=== PATIENT | female | born 1990 | race Caucasian/White ===

== ENCOUNTER 2017-09-23 00:11 | Inpatient (IN) | payer OTHER ==
[2017-09-23] VITALS (35 sets, daily range): BP systolic 106–142; BP diastolic 2–95; PULSE 66–125; TEMP 97.5–98.7
[~2017-09-23] VITALS: Ht 162.6 cm; Wt 77.7 kg
[~2017-09-23 00:11] MED LIST: LORTAB 5/500 501 TAB PO; MAGIC MOUTHWASH1 M2 PO; MAJIC MOUTH WASH
[2017-09-23] MEDS ORDERED: PRENATAL MVI (00:44)
[2017-09-23] MEDS ORDERED: ZANTAC 150150 MG (00:45)
[2017-09-23 02:13] LABS: BASO % 0.2 % (0.0-2.0); EOS # 0.1 (0.0-0.7); EOS % 0.7 % (0-4.0); GRAN % 75.8 % (42.2-75.2); LYMPH # 2.1 (1.2-3.4); LYMPH % 15.7 % (20.0-51.0); MEAN CELL VOLUME 92 fl (80.0-100.0); MEAN CORPUSCULAR HGB CONC 34 g/dl (33.0-37.0); MEAN PLATELET VOLUME 11.3 fl (7.4-10.4); MONO # 0.9 (0.1-0.6); MONO % 7.1 % (1.7-9.3); PLATELET COUNT 196 K/mm3 (130-400); RED BLOOD COUNT 3.75 M/mm3 (4.10-5.30); REDCELL DISTRIBUTION WIDTH-CV 13.6 % (11.5-14.5)
[2017-09-23 02:15] LABS: HEMATOCRIT 34.6 % (37.0-47.0); HEMOGLOBIN 11.7 g/dl (12.5-16.0); MEAN CORPUSCULAR HEMOGLOBIN 31 pg (27.0-31.0)
[2017-09-24 03:30] VITALS: BP 110/62; PULSE 86; TEMP 98
[2017-09-24 06:48] LABS: HEMATOCRIT 24.1 % (37.0-47.0); HEMOGLOBIN 8.2 g/dl (12.5-16.0)
[2017-09-24 07:13] VITALS: BP 116/71; PULSE 80; TEMP 97.8
[2017-09-24] MEDS ORDERED: MOTRIN 600600 MG/TAB PO (09:11)
[2017-09-24] MEDS ORDERED: PERCOCET 325 MG1 TA2 PO (09:11)
== END 2017-09-24 16:30 | disposition home or self-care (01) | DRG 767 ==
LOC: LDRO 00:11 → LDR 00:30 → OB 00:30
PROVIDERS: Obstetrics & Gynecology
PROC: 10E0XZZ Delivery of Products of Conception, External Approach (ICD-10-PCS; principal; 2017-09-23)
PROC: 10D17ZZ Extraction of Products of Conception, Retained, Via Natural or Artificial Opening (ICD-10-PCS; 2017-09-23)
PROC: 0KQM0ZZ Repair Perineum Muscle, Open Approach (ICD-10-PCS; 2017-09-23)
DX: O70.1 Second degree perineal laceration during delivery (principal); O99.02 Anemia complicating childbirth; D62 Acute posthemorrhagic anemia; O73.1 Retained portions of placenta and membranes, without hemorrhage; Z3A.39 39 weeks gestation of pregnancy; Z37.0 Single live birth
CPT/HCPCS: J0690; J2590; J7120

== ENCOUNTER 2018-12-05 00:27 | Inpatient (IN) | payer OTHER ==
[2018-12-05] VITALS (34 sets, daily range): BP systolic 110–158; BP diastolic 59–95; PULSE 70–112; TEMP 97.4–98.3
[~2018-12-05] VITALS: Ht 165.1 cm; Wt 77.7 kg
[~2018-12-05 00:27] MED LIST changes: +MOTRIN 600600 MG/TAB PO; +PERCOCET 325 MG1 TA2 PO; +PRENATAL MVI; +ZANTAC 150150 MG
--- NOTE | 2018-12-05 00:40 | NUR ---
at 40 weeks and 3 days arrives to unit with complaint of contractions since 2314. Pt denies LOF or vaginal bleeding and reports good movement. Pt oriented to room, call light within reach, bed in low and locked position. EFM and toco explained and applied. Plan of care reviewed. SVE with bulging bag of water Dr. Jackson on unit, notified. see physician notification.
--- NOTE | 2018-12-05 01:05 | NUR ---
18 g IV started in left forearm with 1 attempt. Admission labs obtained off of IV start. Lactated ringers infusing to gravity.
--- NOTE | 2018-12-05 01:10 | NUR ---
Dr. Jackson at bedside with bedside ultrasound. Vertex position confirmed. Reviewed plan of care with patient and family.
--- NOTE | 2018-12-05 01:15 | NUR ---
0115 - Pt requesting epidural, Sunshine Means CRNA notified. Will come to bedisde. 0123 - ASHANTI Cobos at bedside. Pt repositioned to sitting on edge of bed. Epidural procedure, risks, and benefits reviewed, pt verbalized understanding. 0132 - Single shot by ASHANTI Cobos, no adverse reactions. FHR tracing maternal HR verified by [id number] monitor. 0133 - Test dose by ASHANTI Cobos, no adverse reactions. 0141 - Pt repositioned to wedge left, safety precautions reviewed, pt verbalized understanding.
[2018-12-05 01:19] LABS: BASO % 0.3 % (0.0-2.0); EOS # 0.2 (0.0-0.7); EOS % 1.6 % (0-4.0); GRAN # 8.9 (1.4-6.5); GRAN % 71.8 % (42.2-75.2); HEMOGLOBIN 12.2 g/dl (12.5-16.0); LYMPH # 2.3 (1.2-3.4); LYMPH % 18.6 % (20.0-51.0); MEAN CELL VOLUME 89 fl (80.0-100.0); MEAN CORPUSCULAR HEMOGLOBIN 30 pg (27.0-31.0); MEAN CORPUSCULAR HGB CONC 34 g/dl (33.0-37.0); MEAN PLATELET VOLUME 11.4 fl (7.4-10.4); MONO # 0.9 (0.1-0.6); MONO % 7.3 % (1.7-9.3); PLATELET COUNT 201 K/mm3 (130-400); RED BLOOD COUNT 4.04 M/mm3 (4.10-5.30); REDCELL DISTRIBUTION WIDTH-CV 13.2 % (11.5-14.5)
[2018-12-05 01:21] LABS: HEMATOCRIT 35.9 % (37.0-47.0)
--- NOTE | 2018-12-05 06:18 | NUR ---
0618: Patient resting in bed, prepped for delivery. Bedside report from Jordan Metcalf RN. Dr. Jackson in room for delivery. 0619: Patient begins pushing with contractions. 0621: Spontaneous vaginal delivery of head immediately followed by infant body. Infant mouth and nose suctioned out by Dr. Jackson and to mothers abdomen where attended to by Sabra Arshad RN. Father of baby cuts umbilcial cord with assist from Dr. Jackson. 0625: Spontaneous and intact delivery of placenta. Pitocin started at 333ml/hr and fundus massaged, firm and down 1 from umbilicus. Second degree perineal laceration repaired. Patient tolerates well. Pericare provided and ice pack to perineum. Patient resting in bed holding infant. See labor and delivery summary, doctor dictation and anesthesia records.
--- NOTE | 2018-12-05 10:30 | NUR ---
IV to INT. Patient sitting up in bed, epidural catheter removed, blue tip intact and bandaid applied to site. Patient ambulates to bathroom. Able to void, pericare provided, ice pack to perineum and tucks pads used. Patient ambulates to room 215.
[2018-12-06 01:10] VITALS: BP 120/85; PULSE 75; TEMP 97.8
[2018-12-06 06:41] LABS: HEMATOCRIT 27.7 % (37.0-47.0); HEMOGLOBIN 9.2 g/dl (12.5-16.0)
[2018-12-06 07:10] VITALS: BP 135/87; PULSE 94; TEMP 98.7
[2018-12-06] MEDS ORDERED: IBU600 MG PO (08:21)
--- NOTE | 2018-12-06 10:26 | NUR ---
Initial visit; Parents thanked Stencil Cutter for offeirng congratulations and God's blessings for the of their son. Stencil Cutter thanked them for choosing our hospital.
[2018-12-06 20:00] VITALS: BP 135/79; PULSE 88; TEMP 97.3
[2018-12-07 07:55] VITALS: BP 121/85; PULSE 87; TEMP 97.9
== END 2018-12-07 11:35 | disposition home or self-care (01) | DRG 806 ==
LOC: LDRO 00:27 → LDR 00:40 → OB 00:40
PROVIDERS: Obstetrics & Gynecology; ADMIT Obstetrics & Gynecology
PROC: 10E0XZZ Delivery of Products of Conception, External Approach (ICD-10-PCS; principal; 2018-12-05)
PROC: 0KQM0ZZ Repair Perineum Muscle, Open Approach (ICD-10-PCS; 2018-12-05)
DX: O69.81X0 Labor and delivery complicated by cord around neck, without compression, not applicable or unspecified (principal); Q21.0 Ventricular septal defect; Z37.0 Single live birth; Z3A.40 40 weeks gestation of pregnancy; O70.1 Second degree perineal laceration during delivery; I37.2 Nonrheumatic pulmonary valve stenosis with insufficiency
CPT/HCPCS: J2590; J2795; J7120

== ENCOUNTER 2020-09-19 17:07 | Inpatient (IN) | payer OTHER ==
[2020-09-19] VITALS (23 sets, daily range): BP systolic 95–166; BP diastolic 51–97; PULSE 65–121; TEMP 97.7–98.1
[~2020-09-19] VITALS: Ht 165.1 cm; Wt 78.2 kg
[~2020-09-19 17:07] MED LIST changes: +IBU600 MG PO
--- NOTE | 2020-09-19 17:49 | NUR ---
1750 PATIENT HERE FOR COMPLAINTS OF LABOR. ASSESSMENT COMPLETED BY Janina HEARD RN. SVE /-1 BULGY BAG AND BLOODY SHOW NOTED. EFM ON GHT 13O GOOD ACCELERATIONS NOTED. CONTRACTIONS 3-5 MIN . IV STARTED IN LEFT FOREARM BY DIANA GARCIA. DR VELIZ CALLED AND UPDATED FOR ADMIT ORDERS AT THIS TIME.
[2020-09-19 17:53] LABS: BASO % 0.2 % (0.0-2.0); EOS # 0.1 (0.0-0.7); EOS % 0.6 % (0-4.0); GRAN # 12.1 (1.4-6.5); GRAN % 80.1 % (42.2-75.2); HEMOGLOBIN 11.4 g/dl (12.5-16.0); LYMPH # 1.9 (1.2-3.4); LYMPH % 12.4 % (20.0-51.0); MEAN CELL VOLUME 88 fl (80.0-100.0); MEAN CORPUSCULAR HEMOGLOBIN 30 pg (27.0-31.0); MEAN CORPUSCULAR HGB CONC 34 g/dl (33.0-37.0); MEAN PLATELET VOLUME 11.1 fl (7.4-10.4); MONO % 6.3 % (1.7-9.3); PLATELET COUNT 212 K/mm3 (130-400); RED BLOOD COUNT 3.87 M/mm3 (4.10-5.30); REDCELL DISTRIBUTION WIDTH-CV 13.2 % (11.5-14.5)
--- NOTE | 2020-09-19 19:12 | NUR ---
1849- Luci GUADALUPE CRNA IN ROOM FOR EPIDURAL PLACEMENT. PT SITTING UP AT SIDE OF BED, BLOOD PRESSURE SET TO EVERY 5 MINUTES, PULSE OXIMETRY IN PLACE. - DIFFICULTY TRACING FHT'S DURING EPIDURAL PLACEMENT, THIS NURSE ATTEMPTING TO ADJUST TOCO THROUGHOUT PROCEDURE, FM WAS AUDIBLE THROUGHTOUT. 1904- TEST DOSE GIVEN BY Luci GUADALUPE CRNA. PT TOLERATED WELL. 1911- PT REPOSITIONED TO SEMIF[place]LERS FOLLOWING EPIDRUAL PLACEMENT.
--- NOTE | 2020-09-19 19:55 | NUR ---
1954- PT CALLS OUT AND STATES SHE FEELS LIGHTHEADED AND NAUSEATED. BP CURRENTLY 95/51. 1956- THIS NURSE IN ROOM, EPHEDRINE 10MG GIVEN. 1999- BP NOW 123/77, PT STATES SHE FEELS BETTER.
--- NOTE | 2020-09-19 22:30 | NUR ---
2211- DR. VELIZ IN ROOM TO EVALUATE PT.SVE OF COMPLETE 2213- LAKHANI DC'D, 350MLS OUT. 2217- PT BEGINS PUSHING WITH DR. VELIZ. 2221- SPONTANEOUS VAGINAL DELIVERY OF VIABLE BABY BOY THROUGH BODY CORD. BABY TO MOTHER'S CHEST, BABY CARES ASSUMED BY Huang WANG RN. 2225- SPONTANEOUS DELIVERY OF INTACT PLACENTA. PITOCIN STARTED AT 333MLS PER PROTOCOL. DR. VELIZ BEGINS REPAIR OF 2ND LACERATION. 2229- RECOVERY BEGINS.
[2020-09-20] VITALS (7 sets, daily range): BP systolic 121–135; BP diastolic 52–83; PULSE 81–90; TEMP 97.1–98.6
--- NOTE | 2020-09-20 01:35 | NUR ---
PT UP TO BATHROOM FOLLOWING DELIVERY VIA WHEELCHAIR. ABLE TO VOID 500 MLS WITHOUT DIFFICULTY. PERICARE PERFORMED, PAD AND MESH UNDERWEAR ON. PT TO VIA WHEELCHAIR.
[2020-09-20] MEDS ORDERED: IBU600 MG PO (08:59)
--- NOTE | 2020-09-20 09:49 | NUR ---
Initial visit; Parents thanked Shift Mechanic for offering congratulations and God's blessings for the of their son. Shift Mechanic thanked family for choosing [facility].
[2020-09-21 08:20] VITALS: BP 129/80; PULSE 76; TEMP 97.5
== END 2020-09-21 13:30 | disposition home or self-care (01) | DRG 807 ==
LOC: LDRO 17:07 → LDR 17:40 → OB 17:40
PROVIDERS: ADMIT Obstetrics & Gynecology
PROC: 10E0XZZ Delivery of Products of Conception, External Approach (ICD-10-PCS; principal; 2020-09-19)
PROC: 0KQM0ZZ Repair Perineum Muscle, Open Approach (ICD-10-PCS; 2020-09-19)
DX: O99.42 Diseases of the circulatory system complicating childbirth (principal); Z37.0 Single live birth; I25.10 Atherosclerotic heart disease of native coronary artery without angina pectoris; Z3A.40 40 weeks gestation of pregnancy
CPT/HCPCS: J2590; J7120